=== PATIENT | female | born 1940 | race Hispanic/Latino ===

== ENCOUNTER → 2018-08-12 | Outpatient (CLI) | payer OTHER | END | disposition home or self-care (01) | LOC: OIH 13:18 | PROVIDERS: ATTEND Internal Medicine | DX: M19.072 Primary osteoarthritis, left ankle and foot (principal); M19.071 Primary osteoarthritis, right ankle and foot; M85.872 Other specified disorders of bone density and structure, left ankle and foot; M85.871 Other specified disorders of bone density and structure, right ankle and foot; M19.032 Primary osteoarthritis, left wrist; M19.031 Primary osteoarthritis, right wrist; M06.4 Inflammatory polyarthropathy; M79.89 Other specified soft tissue disorders; M20.42 Other hammer toe(s) (acquired), left foot | CPT/HCPCS: 73130; 73620 ==